=== PATIENT | male | born 1980 | race Hispanic/Latino ===

== ENCOUNTER 2022-11-01 16:38 | Emergency (ER) | payer SELFPAY ==
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
[2022-11-01] MEDS ORDERED: BUPIVACAINE 0.5% PF 10 ML VIAL ONE (17:52)
[2022-11-01] MEDS ORDERED: TDAP (DIPHTH,PERTUSS(ACELL),TET VAC) 0.5 ML VIAL IMVAC ONE (17:53)
[2022-11-01] MEDS ORDERED: DOXYCYCLINE 100 MG CAP PO ONE (17:53)
[2022-11-01] MEDS ORDERED: SMZ./TMP. 800/160 MG TABLET ONE (17:53)
[2022-11-01] MEDS ORDERED: MUPIROCIN 2% OINT 22GM TUBE TOP ONE (17:53)
[2022-11-01 18:17] VITALS: TEMP 99.1; O2SAT 100
[2022-11-01 18:19] VITALS: BP 126/96
--- NOTE | 2022-11-01 18:23 | RAD REPORT ---
EXAM DESCRIPTION: RAD - Foot Left 3 View - 11/01/2022 6:04 pm CLINICAL HISTORY: Left Foot pain FINDINGS: No fracture or dislocation is seen. A radiopaque foreign body not seen
== END 2022-11-01 18:11 | disposition home or self-care (01) ==
LOC: ER 16:38
DX: S91.145A Puncture wound with foreign body of left lesser toe(s) without damage to nail, initial encounter (principal); W45.8XXA Other foreign body or object entering through skin, initial encounter; Y93.89 Activity, other specified; Y92.832 Beach as the place of occurrence of the external cause; Y99.8 Other external cause status; Z23 Encounter for immunization
CPT/HCPCS: 64450; 96372; 99284